=== PATIENT | male | born 1985 | race African-American/Black ===

== ENCOUNTER 2016-09-24 10:02 | Emergency (ER) | payer OTHER ==
[~2016-09-24] VITALS: Ht 177.8 cm; Wt 72.6 kg
[~2016-09-24 10:02] MED LIST: PHENERGAN PO
== END 2016-09-24 10:51 | disposition home or self-care (01) ==
LOC: CED 10:02
DX: S40.861A Insect bite (nonvenomous) of right upper arm, initial encounter (principal); F17.210 Nicotine dependence, cigarettes, uncomplicated; W57.XXXA Bitten or stung by nonvenomous insect and other nonvenomous arthropods, initial encounter
CPT/HCPCS: 99283